=== PATIENT | female | born 1995 | race Asian ===

== ENCOUNTER 2018-12-20 10:02 | Emergency (ER) | payer BC ==
[~2018-12-20] VITALS: Ht 157.5 cm; Wt 79.4 kg
[2018-12-20 10:33] LABS: URINE BILIRUBIN NEGATIVE (Negative); URINE BLOOD TRACE (Negative); URINE CLARITY CLEAR; URINE COLOR YELLOW; URINE GLUCOSE-RANDOM* NEGATIVE (Negative); URINE KETONES NEGATIVE (Negative); URINE LEUKOCYTES-REFLEX NEGATIVE (Negative); URINE NITRITE-REFLEX NEGATIVE (Negative); URINE PROTEIN (DIPSTICK) NEGATIVE (Negative); URINE UROBILINOGEN 0.2 E.U./dl (0.2-1.0)
[2018-12-20 10:41] LABS: ABSOLUTE NEUTROPHILS 2.5 thou/uL (1.4-8.2); BASOPHILS 0.9 % (0.0-2.0); EOSINOPHILS 2.7 % (0.0-3.0); HEMATOCRIT 42.4 % (37.0-47.0); HEMOGLOBIN 14.3 gm/dL (12.0-15.0); LYMPHOCYTES 40.5 % (24.0-44.0); MCH 27.3 pg (26.0-34.0); MCHC 33.6 g/dL (28.0-37.0); MCV 81.1 fL (80.0-100.0); PLATELET COUNT 289 thou/uL (150-400); POLYS 49.9 % (36.0-66.0); RBC 5.23 mil/uL (4.20-5.00); RDW 13.1 % (10.5-14.5)
[2018-12-20 10:48] LABS: CALCIUM 9.1 mg/dL (8.5-10.1); CREATININE 0.9 mg/dL (0.6-1.0)
[2018-12-20 12:56] VITALS: BP 139/77
== END 2018-12-20 13:00 | disposition home or self-care (01) ==
LOC: ER 10:02
PROVIDERS: Emergency Medicine
DX: M54.5 Low back pain (principal)